=== PATIENT | female | born 1960 | race African-American/Black ===

== ENCOUNTER 2017-03-20 16:23 | Emergency (ER) | payer OTHER, MEDICAID ==
[~2017-03-20] VITALS: Ht 170.2 cm; Wt 110.7 kg
[~2017-03-20 16:23] MED LIST: LEVO112T2 PO
[2017-03-20 16:29] VITALS: BP_SYST 154
[2017-03-20 21:44] VITALS: BP_SYST 146
[2017-03-20] MEDS ORDERED: CIPROFLOXACIN HCL 500 MG TABLET PO ONE (21:45)
== END 2017-03-20 21:44 | disposition home or self-care (01) ==
LOC: SED 16:23
DX: S90.562A Insect bite (nonvenomous), left ankle, initial encounter (principal); S90.561A Insect bite (nonvenomous), right ankle, initial encounter; L08.9 Local infection of the skin and subcutaneous tissue, unspecified; I10 Essential (primary) hypertension; M06.9 Rheumatoid arthritis, unspecified; M81.0 Age-related osteoporosis without current pathological fracture; Z88.0 Allergy status to penicillin; Z90.49 Acquired absence of other specified parts of digestive tract; Z88.8 Allergy status to other drugs, medicaments and biological substances; W57.XXXA Bitten or stung by nonvenomous insect and other nonvenomous arthropods, initial encounter; Y93.89 Activity, other specified; Y92.89 Other specified places as the place of occurrence of the external cause; Y99.8 Other external cause status
CPT/HCPCS: 99283